=== PATIENT | male | born 1940 | race Caucasian/White ===

== ENCOUNTER 2017-08-28 10:37 | Outpatient (CLI) | payer OTHER | END 2017-08-28 10:46 | disposition home or self-care (01) | LOC: LAB 10:37 | DX: N30.00 Acute cystitis without hematuria (principal) ==

== ENCOUNTER 2017-11-28 13:04 | Outpatient (CLI) | payer OTHER | END 2017-11-28 13:12 | disposition home or self-care (01) | LOC: RAD 13:04 | DX: J44.1 Chronic obstructive pulmonary disease with (acute) exacerbation (principal); R06.02 Shortness of breath ==

== ENCOUNTER 2018-02-24 09:48 | Outpatient (CLI) | payer OTHER | END 2018-02-24 09:54 | disposition home or self-care (01) | LOC: LAB 09:48 | DX: N18.9 Chronic kidney disease, unspecified (principal); N30.00 Acute cystitis without hematuria; R97.21 Rising PSA following treatment for malignant neoplasm of prostate; R82.79 Other abnormal findings on microbiological examination of urine ==

== ENCOUNTER → 2018-09-22 | Outpatient (CLI) | payer OTHER | END | disposition home or self-care (01) | LOC: RAD 12:18 | DX: J45.998 Other asthma (principal); J01.90 Acute sinusitis, unspecified; J32.8 Other chronic sinusitis ==

== ENCOUNTER 2020-02-18 11:12 | Outpatient (CLI) | payer OTHER | END 2020-02-18 11:17 | disposition home or self-care (01) | LOC: LAB 11:12 | PROVIDERS: ATTEND Specialist | DX: N39.0 Urinary tract infection, site not specified (principal); D64.89 Other specified anemias; E11.21 Type 2 diabetes mellitus with diabetic nephropathy; E11.65 Type 2 diabetes mellitus with hyperglycemia ==

== ENCOUNTER → 2020-10-25 10:21 | Outpatient (CLI) | payer OTHER | END | disposition home or self-care (01) | LOC: LAB 10:21 | PROVIDERS: ATTEND Urology | DX: N30.00 Acute cystitis without hematuria (principal) ==

== ENCOUNTER 2021-07-28 11:09 | Outpatient (CLI) | payer OTHER | END 2021-07-28 11:13 | disposition home or self-care (01) | LOC: RAD 11:09 | PROVIDERS: ATTEND Specialist | DX: S22.49XA Multiple fractures of ribs, unspecified side, initial encounter for closed fracture (principal); S32.000A Wedge compression fracture of unspecified lumbar vertebra, initial encounter for closed fracture; S22.000A Wedge compression fracture of unspecified thoracic vertebra, initial encounter for closed fracture ==

== ENCOUNTER 2021-08-24 09:48 | Outpatient (CLI) | payer OTHER | END 2021-08-24 09:51 | disposition home or self-care (01) | LOC: MRI 09:48 | PROVIDERS: ATTEND Psychiatry & Neurology Clinical Neurophysiology | DX: I62.03 Nontraumatic chronic subdural hemorrhage (principal) | CPT/HCPCS: 70551 ==

== ENCOUNTER 2021-09-18 09:54 | Outpatient (CLI) | payer OTHER | END 2021-09-18 09:58 | disposition home or self-care (01) | LOC: TOM 09:54 | PROVIDERS: ATTEND Internal Medicine Pulmonary Disease | DX: J43.2 Centrilobular emphysema (principal); R06.02 Shortness of breath; R07.1 Chest pain on breathing ==

== ENCOUNTER 2024-04-14 11:24 | Outpatient (CLI) | payer OTHER | END 2024-04-14 11:27 | disposition home or self-care (01) | LOC: RAD 11:24 | PROVIDERS: ATTEND Specialist | DX: J45.998 Other asthma (principal) ==

== ENCOUNTER 2024-12-08 09:11 | Outpatient (CLI) | payer OTHER | END 2024-12-08 09:18 | disposition home or self-care (01) | LOC: TOM 09:11 | PROVIDERS: ATTEND Internal Medicine Gastroenterology | DX: K56.600 Partial intestinal obstruction, unspecified as to cause (principal); Z86.0101 Personal history of adenomatous and serrated colon polyps ==

== ENCOUNTER 2025-06-15 11:22 | Outpatient (CLI) | payer OTHER | END 2025-06-15 11:28 | disposition home or self-care (01) | LOC: RAD 11:22 | PROVIDERS: ATTEND Orthopaedic Surgery | DX: M25.561 Pain in right knee (principal); M25.562 Pain in left knee; M25.551 Pain in right hip; M25.552 Pain in left hip ==

== ENCOUNTER 2025-06-16 11:37 | Outpatient (CLI) | payer OTHER | END 2025-06-16 11:40 | disposition home or self-care (01) | LOC: SONOGRAMA 11:37 | PROVIDERS: ATTEND Orthopaedic Surgery | DX: D17.0 Benign lipomatous neoplasm of skin and subcutaneous tissue of head, face and neck (principal); D17.1 Benign lipomatous neoplasm of skin and subcutaneous tissue of trunk ==

== ENCOUNTER → 2025-06-18 09:56 | Outpatient (CLI) | payer OTHER | END | disposition home or self-care (01) | LOC: NUCLEAR 09:56 | PROVIDERS: ATTEND Orthopaedic Surgery | DX: M81.0 Age-related osteoporosis without current pathological fracture (principal) ==